=== PATIENT | female | born 1975 | race Caucasian/White ===

== ENCOUNTER 2017-11-06 09:34 | Emergency (ER) | payer OTHER ==
[~2017-11-06] VITALS: Ht 160 cm; Wt 63.5 kg
[2017-11-06 10:30] LABS: BASOPHILS ABSOLUTE AUTO 0.03 K/mm3 (0.00-0.23); BASOPHILS PERCENT AUTO 0 % (0-2); EOSINOPHILS ABSOLUTE AUTO 0.13 K/mm3 (0.00-0.68); EOSINOPHILS PERCENT AUTO 2 % (0-6); Hematocrit 41.5 % (33.0-51.0); IMMATURE GRAN ABSOLUTE AUTO 0.02 K/mm3 (0.00-0.10); IMMATURE GRAN PERCENT AUTO 0 % (0-1); LYMPHOCYTES ABSOLUTE AUTO 1.58 K/mm3 (0.84-5.20); LYMPHOCYTES PERCENT AUTO 19 % (21-46); MONOCYTES ABSOLUTE AUTO 0.57 K/mm3 (0.16-1.47); MONOCYTES PERCENT AUTO 7 % (4-13); Mean Corpuscular HGB 28.9 pg (26.0-34.0); Mean Corpuscular HGB Conc 33.7 g/dL (31.5-36.5); Mean Corpuscular Volume 86 fL (80-100); Mean Platelet Volume 10.5 fL (9.1-12.4); NEUTROPHILS ABSOLUTE AUTO 6.12 K/mm3 (1.96-9.15); NEUTROPHILS PERCENT AUTO 73 % (41-73); Platelet Count 228 K/mm3 (150-400); RDW Coefficient Variation 12.2 % (11.7-14.2); RDW Standard Deviation 37.8 fL (35.1-46.3); Red Blood Cell Count 4.85 M/mm3 (3.80-5.20); White Blood Cell Count 8.45 K/mm3 (4.00-11.30)
[2017-11-06 10:35] LABS: Base Excess Venous 1.2 mmol/L; Bicarbonate Venous 25.7 mmol/L (24.0-30.0); PCO2 Venous 32.6 mmHg (38-42); PO2 Venous 55.3 mmHg (38-42); pH Blood Venous 7.49 (7.34-7.37)
[2017-11-06 10:45] LABS: Source, Urine Clean Catch
[2017-11-06 10:53] LABS: Bilirubin, Urine Neg (Neg); Blood, Urine Neg (Neg); Glucose Qualitative, Urine Neg (Neg); Ketones, Urine Neg (Neg); Leukocyte Esterase, Urine Neg (Neg); Nitrite, Urine Neg (Neg); Protein, Urine Neg (Neg); Urobilinogen, Urine NORM (Normal)
[2017-11-06 10:57] LABS: Alanine Aminotransfer (ALT/SGP 34 U/L (12-78); Albumin, Blood 4.1 g/dL (3.4-5.0); Albumin/Globulin Ratio 1.1 (0.8-1.8); Alk Phos 38 U/L (50-136); Anion Gap 10 mmol/L (6-16); Aspartate Aminotrans (AST/SGOT 23 U/L (12-37); Bilirubin, Total 0.4 mg/dL (0.1-1.0); Blood Urea Nitrogen 19 mg/dL (8-24); Bun/Creatinine Ratio 24.5 (12.0-20.0); CO2, Blood 24 mmol/L (21-32); Calcium, Blood 9.6 mg/dL (8.5-10.1); Chloride, Blood 106 mmol/L (98-108); Creatinine, Blood 0.78 mg/dL (0.40-1.00); Globulin, Blood 3.8 g/dL (2.2-4.0); Glomerular Filtration Rate >60 (60-); Glucose, Blood 90 mg/dL (70-99); Potassium, Blood 3.5 mmol/L (3.5-5.5); Sodium, Blood 140 mmol/L (136-145); Total Protein, Blood 7.9 g/dL (6.4-8.2); Troponin I 0.038 ng/mL (0.000-0.040)
[2017-11-06 11:16] LABS: Appearance, Urine Clear (Clear); Color, Urine Pale Yellow (P-Yellow)
[2017-11-06] MEDS ORDERED: Ativan0.5 MG SL (11:25)
== END 2017-11-06 11:47 | disposition home or self-care (01) ==
LOC: ER 09:34
PROVIDERS: Emergency Medicine
DX: R55 Syncope and collapse (principal); Z88.1 Allergy status to other antibiotic agents
CPT/HCPCS: 71046; 80053; 81003; 82803; 83880; 84443; 84484; 85025; 85379; 85730; 93005; 93010; 96374; 99283; J2060

== ENCOUNTER → 2018-03-13 | Outpatient (CLI) | payer SELFPAY ==
[~2018-03-13] MED LIST: Ativan0.5 MG SL
[2018-03-17 15:07] LABS: HPV 16 Negative (Negative); HPV 18 Negative (Negative); HPV OTHER HR TYPES Negative (Negative)
== END | disposition home or self-care (01) ==
LOC: LAB 18:04 → LAB SHORT 18:04
PROVIDERS: Nurse Practitioner Women's Health
DX: Z12.4 Encounter for screening for malignant neoplasm of cervix (principal); Z91.89 Other specified personal risk factors, not elsewhere classified
CPT/HCPCS: 87624; G0123

== ENCOUNTER → 2018-11-17 | Outpatient (CLI) | payer OTHER ==
[2018-11-18 10:31] LABS: Bilirubin, Urine Neg (Neg); Blood, Urine Neg (Neg); Glucose Qualitative, Urine Neg (Neg); Ketones, Urine Neg (Neg); Leukocyte Esterase, Urine Neg (Neg); Nitrite, Urine Neg (Neg); Protein, Urine Neg (Neg); Urobilinogen, Urine NORM (Normal)
[2018-11-18 10:36] LABS: Appearance, Urine Clear (Clear); Color, Urine Yellow (P-Yellow)
== END | disposition home or self-care (01) ==
LOC: LAB 10:08 → LAB SHORT 10:08
PROVIDERS: Obstetrics & Gynecology
DX: Z34.81 Encounter for supervision of other normal pregnancy, first trimester (principal)
CPT/HCPCS: 81003

== ENCOUNTER → 2019-04-30 | Outpatient (CLI) | payer OTHER | END | disposition home or self-care (01) | LOC: LAB SHORT 15:30 → LAB 15:30 | DX: Z34.03 Encounter for supervision of normal first pregnancy, third trimester (principal) | CPT/HCPCS: 87081; 87653 ==

== ENCOUNTER 2019-05-20 06:03 | Inpatient (IN) | payer OTHER ==
[~2019-05-20] VITALS: Ht 165.1 cm; Wt 96.3 kg
[2019-05-20] MEDS ORDERED: PRENATAL TABLE1 EAC2 PO (06:31)
[2019-05-20] MEDS ORDERED: VITAMIN D-32000 UNIT (06:32)
[2019-05-20] MEDS ORDERED: ACETAMINOPHEN500 MG PO (06:32)
[2019-05-20] MEDS ORDERED: VITAMIN C500 MG PO (06:32)
[2019-05-20] MEDS ORDERED: ASPI81CH PO (06:33)
[2019-05-20 06:37] LABS: BASOPHILS ABSOLUTE AUTO 0.03 K/mm3 (0.00-0.23); BASOPHILS PERCENT AUTO 0 % (0-2); EOSINOPHILS ABSOLUTE AUTO 0.19 K/mm3 (0.00-0.68); EOSINOPHILS PERCENT AUTO 2 % (0-6); IMMATURE GRAN ABSOLUTE AUTO 0.03 K/mm3 (0.00-0.10); IMMATURE GRAN PERCENT AUTO 0 % (0-1); LYMPHOCYTES ABSOLUTE AUTO 1.54 K/mm3 (0.84-5.20); LYMPHOCYTES PERCENT AUTO 15 % (21-46); MONOCYTES ABSOLUTE AUTO 0.91 K/mm3 (0.16-1.47); MONOCYTES PERCENT AUTO 9 % (4-13); Mean Corpuscular HGB 28.8 pg (26.0-34.0); Mean Corpuscular HGB Conc 33.3 g/dL (31.5-36.5); Mean Corpuscular Volume 86 fL (80-100); Mean Platelet Volume 12.5 fL (9.1-12.4); NEUTROPHILS ABSOLUTE AUTO 7.44 K/mm3 (1.96-9.15); NEUTROPHILS PERCENT AUTO 73 % (41-73); Platelet Count 156 K/mm3 (150-400); RDW Coefficient Variation 12.6 % (11.7-14.2); RDW Standard Deviation 39.3 fL (35.1-46.3); Red Blood Cell Count 4.17 M/mm3 (3.80-5.20); White Blood Cell Count 10.14 K/mm3 (4.00-11.30)
--- NOTE | 2019-05-20 08:38 | NUR ---
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 PT DECLINES PITOCIN AT THIS TIME, WOULD LIKE TO TRY WITHOUT PIT IF POSSIBLE. AROM AT 0729, CLEAR FLUID. DISCUSSED PAIN CONTROL OPTIONS, PLANS NATURAL, BUT OPEN TO MEDS IF LONG LABOR. PT'S MATEO AT SIDE, SUPPORTIVE. PLAN FOR BIO PARENTS AND IN ROOM AT . BIO DAD TO CUT CORD, SKIN TO SKIN WITH BIO MOM.
[2019-05-21 05:41] LABS: Hematocrit 33.1 % (33.0-51.0); Mean Corpuscular HGB 28.4 pg (26.0-34.0); Mean Corpuscular HGB Conc 33.2 g/dL (31.5-36.5); Mean Corpuscular Volume 86 fL (80-100); Mean Platelet Volume 12.6 fL (9.1-12.4); Platelet Count 133 K/mm3 (150-400); RDW Coefficient Variation 12.6 % (11.7-14.2); RDW Standard Deviation 38.2 fL (35.1-46.3); Red Blood Cell Count 3.87 M/mm3 (3.80-5.20); White Blood Cell Count 14.66 K/mm3 (4.00-11.30)
--- NOTE | 2019-05-21 11:05 | NUR ---
PT DECLINES PPFU APPT, BUT WILL CALL IF SHE NEEDS MORE ASSISTANCE/SUPPORT.
[2019-05-21] MEDS ORDERED: IBUP800 PO (11:08)
--- NOTE | 2019-05-21 12:47 | NUR ---
ALL DC TEACHING DONE, IN ROOM, DISCUSSED S/S TO LOOK FOR WITH DEPRESSION. ALL QUESTIONS ANSWERED. DC HOME.
[2019-05-22] MEDS ORDERED: METHYLERGO0.2 MG/1 M PO (11:07)
== END 2019-05-21 12:53 | disposition home or self-care (01) | DRG 807 ==
LOC: BC 06:03 → OBS 06:03 → BC 06:08
PROVIDERS: ADMIT Obstetrics & Gynecology
PROC: 10E0XZZ Delivery of Products of Conception, External Approach (ICD-10-PCS; principal; 2019-05-20)
PROC: 0HQ9XZZ Repair Perineum Skin, External Approach (ICD-10-PCS; 2019-05-20)
PROC: 10907ZC Drainage of Amniotic Fluid, Therapeutic from Products of Conception, Via Natural or Artificial Opening (ICD-10-PCS; 2019-05-20)
PROC: 3E0R3BZ Introduction of Anesthetic Agent into Spinal Canal, Percutaneous Approach (ICD-10-PCS; 2019-05-20)
DX: O99.214 Obesity complicating childbirth (principal); Z37.0 Single live birth; E66.9 Obesity, unspecified; O70.1 Second degree perineal laceration during delivery; Z3A.39 39 weeks gestation of pregnancy
CPT/HCPCS: 36415; 51702; 85025; 85027; 86900; 86901; A9270; J1885; J2210; J2590; J3010; J7120

== ENCOUNTER 2019-05-21 15:24 | Observation (INO) | payer OTHER ==
[~2019-05-21 15:24] MED LIST changes: +ACETAMINOPHEN500 MG PO; +ASPI81CH PO; +IBUP800 PO; +PRENATAL TABLE1 EAC2 PO; +VITAMIN C500 MG PO; +VITAMIN D-32000 UNIT
[2019-05-21 17:22] LABS: BASOPHILS ABSOLUTE AUTO 0.03 K/mm3 (0.00-0.23); BASOPHILS PERCENT AUTO 0 % (0-2); EOSINOPHILS ABSOLUTE AUTO 0.16 K/mm3 (0.00-0.68); EOSINOPHILS PERCENT AUTO 1 % (0-6); Hematocrit 33.7 % (33.0-51.0); Hemoglobin 11.1 g/dL (11.5-16.0); IMMATURE GRAN ABSOLUTE AUTO 0.05 K/mm3 (0.00-0.10); IMMATURE GRAN PERCENT AUTO 0 % (0-1); LYMPHOCYTES ABSOLUTE AUTO 1.53 K/mm3 (0.84-5.20); LYMPHOCYTES PERCENT AUTO 13 % (21-46); MONOCYTES ABSOLUTE AUTO 0.98 K/mm3 (0.16-1.47); MONOCYTES PERCENT AUTO 8 % (4-13); Mean Corpuscular HGB Conc 32.9 g/dL (31.5-36.5); Mean Corpuscular Volume 88 fL (80-100); Mean Platelet Volume 12.8 fL (9.1-12.4); NEUTROPHILS ABSOLUTE AUTO 9.21 K/mm3 (1.96-9.15); NEUTROPHILS PERCENT AUTO 77 % (41-73); Platelet Count 174 K/mm3 (150-400); RDW Coefficient Variation 12.8 % (11.7-14.2); RDW Standard Deviation 40.7 fL (35.1-46.3); Red Blood Cell Count 3.83 M/mm3 (3.80-5.20); White Blood Cell Count 11.96 K/mm3 (4.00-11.30)
--- NOTE | 2019-05-21 19:23 | NUR ---
PATIENT DISCHARGED THIS AFTERNOON FROM [facility]. RETURNED WITH REPORT OF HEAVY VAGINAL BLEEDING. SATURATED 2 PADS AND HAD 2 LARGE CLOTS AT HOME. BLEEDING HEAVY, FUNDUS FIRM WITH MASSAGE, DR VASQUEZ AND Raul SWENSON [facility] NOTIFIED OF PATIENTS ARRIVAL
--- NOTE | 2019-05-21 19:31 | NUR ---
EBL 400 PER S. MESSI OF BLOOD LOST AT HOME. PATIENT HAD A PICTURE OF THE SATURATED PAD ON HER PHONE AND STATED THERE WAS A SECOND ONE THAT WAS THE SAME
--- NOTE | 2019-05-21 19:36 | NUR ---
Ira DIXON CNM AT BEDSIDE TO EVALUATE BLEEDING. TELEPHONE ORDERS RECEIVED SIMULTANEOUSLY FROM DR VASQUEZ WILL SHE WAS IN THE SURGERY CENTER.
--- NOTE | 2019-05-21 19:38 | NUR ---
1615 Raul SWENSON REMAINS AT BEDSIDE. 18 GAUGE IV PLACED RIGHT FORARM. VERBAL ORDER TO NOT PLACE A SECOND IV FROM Raul SWENSON [facility]. PATIENT ATE LUNCH ABOUT 1200 TODAY. AND HAS BEEN TAKING SIPS OF WATER. NPO AT 1515
--- NOTE | 2019-05-21 22:37 | NUR ---
PT C/O PAIN IN HANDS DUE TO EDEMA. IV IS COMPLETE NOW AND ARMS ARE ELEVATED. PT VOIDING 60-100 WITH EACH VOID AND BLOOD LOSS HAS BEEN MINIMAL AT THIS TIME. PT FEELS STEADY UP ON HER FEET AND AMBULATING AROUND ROOM. SHE IS VERY TIRED BUT STRUGGLING TO GET REST. SHE IS AWARE THAT SHE MAY HAVE PRN AMBIEN IF NEEDED. ALL VOIDS BEING MEASURED AND PADS BEING WEIGHED.
[2019-05-22 05:31] LABS: BASOPHILS ABSOLUTE AUTO 0.03 K/mm3 (0.00-0.23); BASOPHILS PERCENT AUTO 0 % (0-2); EOSINOPHILS ABSOLUTE AUTO 0.18 K/mm3 (0.00-0.68); EOSINOPHILS PERCENT AUTO 2 % (0-6); Hematocrit 27.7 % (33.0-51.0); IMMATURE GRAN ABSOLUTE AUTO 0.04 K/mm3 (0.00-0.10); IMMATURE GRAN PERCENT AUTO 0 % (0-1); LYMPHOCYTES PERCENT AUTO 12 % (21-46); MONOCYTES ABSOLUTE AUTO 0.81 K/mm3 (0.16-1.47); MONOCYTES PERCENT AUTO 8 % (4-13); Mean Corpuscular HGB Conc 32.5 g/dL (31.5-36.5); Mean Corpuscular Volume 89 fL (80-100); Mean Platelet Volume 11.9 fL (9.1-12.4); NEUTROPHILS ABSOLUTE AUTO 8.23 K/mm3 (1.96-9.15); NEUTROPHILS PERCENT AUTO 78 % (41-73); Platelet Count 137 K/mm3 (150-400); RDW Standard Deviation 42.1 fL (35.1-46.3); White Blood Cell Count 10.59 K/mm3 (4.00-11.30)
[2019-05-22] MEDS ORDERED: METHYLERGO0.2 MG/1 M PO (11:07)
--- NOTE | 2019-05-22 15:55 | NUR ---
PATIENT EDUCATION AND DISCHARGE INSTRUCTIONS REVIEWED WITH PATIENT ADN S/O. PT VERBALIZED UNDERSTANDING, DENIED ANY FURTHER QUESTIONS OR CONCERNS. BLEEDING REMAINED SCANT T/O SHIFT. SCRIPT FOR PO METHERGINE SENT HOME WITH PATIENT. PATIENT ESCORTED OUT TO CAR BY RN IN WHEELCHAIR, AT HER SIDE. ALL BELONGINGS IN HAND.
--- NOTE | 2019-05-22 16:00 | NUR ---
DISCHARGE INSTRUCTIONS REVIEWED WITH PATIENT AND S/O. VERBALIZED UNDERSTANDING, DENIED ANY QUESTIONS OR CONCERNS. BLEEDING SCANT T/O SHIFT. VSS.
== END 2019-05-22 15:42 | disposition home or self-care (01) ==
LOC: BC 15:24 → OBS 15:24 → BC 16:07
PROVIDERS: ADMIT Obstetrics & Gynecology
DX: O72.1 Other immediate postpartum hemorrhage (principal); O99.52 Diseases of the respiratory system complicating childbirth; J45.909 Unspecified asthma, uncomplicated; Z88.1 Allergy status to other antibiotic agents; Z91.018 Allergy to other foods; Z79.82 Long term (current) use of aspirin; Z79.1 Long term (current) use of non-steroidal anti-inflammatories (NSAID); Z79.899 Other long term (current) drug therapy
CPT/HCPCS: 36415; 85025; 86850; 86900; 86901; 96365; 96366; 96375; 96376; G0378; J1885; J2590; J3010; J7120

== ENCOUNTER → 2023-02-19 | Outpatient (CLI) | payer OTHER ==
[~2023-02-19] MED LIST changes: +METHYLERGO0.2 MG/1 M PO
[2023-02-19 15:41] LABS: Candida species (DNA Probe) Positive (NEGATIVE); G. vaginalis (DNA Probe) Negative (NEGATIVE); T. vaginalis (DNA Probe) Negative (NEGATIVE)
== END ==
LOC: LAB 12:06 → LAB SHORT 12:06
PROVIDERS: Advanced Practice Midwife
DX: N76.0 Acute vaginitis (principal)
CPT/HCPCS: 87480; 87510; 87660

== ENCOUNTER → 2023-06-26 | Outpatient (CLI) | payer OTHER | LOC: LAB SHORT 13:41 → LAB 13:41 | DX: O09.92 Supervision of high risk pregnancy, unspecified, second trimester (principal) | CPT/HCPCS: 87081; 87150 ==

== ENCOUNTER 2023-07-11 07:00 | Inpatient (IN) | payer OTHER ==
[~2023-07-11] VITALS: Ht 165.1 cm; Wt 85.7 kg
[2023-07-11] VITALS (29 sets, daily range): BP systolic 117–154; BP diastolic 63–100
[2023-07-11 07:57] LABS: BASOPHILS ABSOLUTE AUTO 0.04 K/mm3 (0.00-0.23); BASOPHILS PERCENT AUTO 0 % (0-2); EOSINOPHILS PERCENT AUTO 2 % (0-6); Hematocrit 38.1 % (33.0-51.0); Hemoglobin 13.2 g/dL (11.5-16.0); IMMATURE GRAN ABSOLUTE AUTO 0.06 K/mm3 (0.00-0.10); IMMATURE GRAN PERCENT AUTO 1 % (0-1); LYMPHOCYTES ABSOLUTE AUTO 1.56 K/mm3 (0.84-5.20); LYMPHOCYTES PERCENT AUTO 13 % (21-46); MONOCYTES ABSOLUTE AUTO 0.92 K/mm3 (0.16-1.47); MONOCYTES PERCENT AUTO 8 % (4-13); Mean Corpuscular HGB 29.4 pg (26.0-34.0); Mean Corpuscular HGB Conc 34.6 g/dL (31.5-36.5); Mean Corpuscular Volume 85 fL (80-100); Mean Platelet Volume 11.6 fL (9.1-12.4); NEUTROPHILS ABSOLUTE AUTO 8.85 K/mm3 (1.96-9.15); NEUTROPHILS PERCENT AUTO 76 % (41-73); Platelet Count 156 K/mm3 (150-400); RDW Coefficient Variation 13.2 % (11.7-14.2); RDW Standard Deviation 40.8 fL (35.1-46.3); Red Blood Cell Count 4.49 M/mm3 (3.80-5.20); White Blood Cell Count 11.63 K/mm3 (4.00-11.30)
[2023-07-11] MEDS ORDERED: FEOSOL BIFERA 228 MG PO (08:06)
[2023-07-11] MEDS ORDERED: Flovent 220 Ora12 GM INH (08:07)
--- NOTE | 2023-07-11 18:57 | NUR ---
RESTING IN BED. NO COMPLAINTS. REPORT WILL BE GIVEN TO ONCOMING SHIFT. STABLE.
[2023-07-12 04:57] VITALS: BP 115/67
[2023-07-12 06:32] LABS: Hematocrit 38.8 % (33.0-51.0); Hemoglobin 12.8 g/dL (11.5-16.0); Mean Corpuscular HGB 29.2 pg (26.0-34.0); Mean Corpuscular Volume 89 fL (80-100); Mean Platelet Volume 11.3 fL (9.1-12.4); Platelet Count 154 K/mm3 (150-400); RDW Coefficient Variation 13.2 % (11.7-14.2); RDW Standard Deviation 42.8 fL (35.1-46.3); Red Blood Cell Count 4.38 M/mm3 (3.80-5.20)
[2023-07-12 08:13] VITALS: BP 126/85
[2023-07-12 11:24] VITALS: BP 129/82
--- NOTE | 2023-07-12 13:10 | NUR ---
ASSUMED CARE FROM MIGUELANGEL KOLB
== END 2023-07-12 16:10 | disposition home or self-care (01) | DRG 807 ==
LOC: BC 07:00 → OBS 07:00 → BC 07:26
PROVIDERS: ADMIT Advanced Practice Midwife
PROC: 00HU33Z Insertion of Infusion Device into Spinal Canal, Percutaneous Approach (ICD-10-PCS; principal; 2023-07-11)
PROC: 3E0R3BZ Introduction of Anesthetic Agent into Spinal Canal, Percutaneous Approach (ICD-10-PCS; 2023-07-11)
PROC: 10E0XZZ Delivery of Products of Conception, External Approach (ICD-10-PCS; 2023-07-11)
PROC: 0U7C7ZZ Dilation of Cervix, Via Natural or Artificial Opening (ICD-10-PCS; 2023-07-11)
PROC: 10907ZC Drainage of Amniotic Fluid, Therapeutic from Products of Conception, Via Natural or Artificial Opening (ICD-10-PCS; 2023-07-11)
PROC: 3E0R3NZ Introduction of Analgesics, Hypnotics, Sedatives into Spinal Canal, Percutaneous Approach (ICD-10-PCS; 2023-07-11)
DX: O69.2XX0 Labor and delivery complicated by other cord entanglement, with compression, not applicable or unspecified (principal); Z37.0 Single live birth; Z3A.39 39 weeks gestation of pregnancy; Z67.10 Type A blood, Rh positive; Z90.89 Acquired absence of other organs; Z98.82 Breast implant status; Z88.1 Allergy status to other antibiotic agents; Z79.82 Long term (current) use of aspirin; Z79.899 Other long term (current) drug therapy
CPT/HCPCS: 36415; 51702; 85025; 85027; 86850; 86900; 86901; A9270; J1885; J2590; J7120

== ENCOUNTER → 2023-08-06 | Outpatient (CLI) | payer OTHER ==
[~2023-08-06] MED LIST changes: +FEOSOL BIFERA 228 MG PO; +Flovent 220 Ora12 GM INH
== END ==
LOC: LAB 15:14 → LAB SHORT 15:14
DX: C44.612 Basal cell carcinoma of skin of right upper limb, including shoulder (principal)
CPT/HCPCS: 88305